=== PATIENT | female | born 2000 | race Caucasian/White ===

== ENCOUNTER 2023-10-13 10:48 | Emergency (ER) | payer OTHER ==
[~2023-10-13] VITALS: Ht 157.5 cm; Wt 46.4 kg
[2023-10-13 11:00] VITALS: TEMP 98.6
[2023-10-13 13:03] VITALS: BP 100/75; PULSE 80
== END 2023-10-13 13:35 | disposition home or self-care (01) ==
LOC: COL.ER 10:48
DX: M94.0 Chondrocostal junction syndrome [Tietze] (principal); M41.9 Scoliosis, unspecified; W19.XXXA Unspecified fall, initial encounter; Y93.89 Activity, other specified; Y99.0 Civilian activity done for income or pay